=== PATIENT | female | born 1935 | race Caucasian/White ===

== ENCOUNTER 2016-10-30 18:19 | Emergency (ER) | payer MEDICARE, OTHER | END 2016-10-30 18:40 | disposition left against medical advice (07) | LOC: D.ER 18:19 | DX: Z02.9 Encounter for administrative examinations, unspecified (principal) ==

== ENCOUNTER 2016-11-17 11:14 | Inpatient (IN) | payer MEDICARE, OTHER ==
[~2016-11-17] VITALS: Ht 165.1 cm; Wt 77.0 kg
--- NOTE | 2016-11-17 11:00 | NUR ---
ARRIVE TO ROOM VIA AMBULATORY ACCOMPANIED BY DAUGHTER AND ADMISSION STAFF. ALERT AND ORIENTED X4. [place]. DIRECT ADMIT FROM 'S OFFICE. COMPLAINS OF NAUSEA AND VOMITING FOR PAST WEEK. DENIES PAIN OR SOB. DENIES ANY NEEDS. CONTINUE ADMISSION PROCESS. IV SITED LT AC 20G. BED LOCKED AND LOW. CALL LIGHT IN REACH. TWO SIDERAILS UP. REFUSE SCDs.
[2016-11-17] MEDS ORDERED: ZOLOFT25 MG PO (11:36)
[2016-11-17] MEDS ORDERED: PROAIR HFA8.5 GM INH (11:36)
[2016-11-17] MEDS ORDERED: PLAVIX75 MG PO (11:37)
[2016-11-17] MEDS ORDERED: ULTRAM50 MG PO (11:37)
[2016-11-17] MEDS ORDERED: CARAFATE1 G PO (11:38)
[2016-11-17] MEDS ORDERED: SILVADENE20 GM TP (11:38)
[2016-11-17] MEDS ORDERED: ZYLOPRIM100 MG PO (11:38)
[2016-11-17 12:51] LABS: BASOPHILS 0.7 % (0-2); EOSINOPHILS 20.1 % (0-7); HEMOGLOBIN 13.8 g/dL (12-16); IMMATURE GRANULOCYTES 0.2 % (0-5); LYMPHOCYTES 25.8 % (15-50); MCH 28.5 pg (26.0-34.0); MCHC 32.1 g/dL (31.0-37.0); MCV 88.8 fL (80.0-100.0); MEAN PLATELET VOLUME 10.3 fL (7.4-10.4); NEUTROPHILS 44.2 % (40-80); PLATELET COUNT 217 10x3/uL (130-400); RBC 4.84 10x6/uL (4.00-5.40); WBC 8.9 10x3/uL (4.8-10.8)
[2016-11-17 12:54] VITALS: BP 131/66
[2016-11-17 13:30] LABS: ALBUMIN 3.3 g/dL (3.4-5.0); ALKALINE PHOSPHATASE 94 U/L (46-116); ALT (SGPT) 21 U/L (10-68); AMYLASE - SERUM 29 U/L (25-115); BILIRUBIN - TOTAL 0.26 mg/dL (0.2-1.3); C-REACTIVE PROTEIN 1.8 mg/dL (0.0-0.9); CALC OSMOLALITY 280 mosm/kg (275-300); CALCIUM 8.6 mg/dL (8.5-10.1); CARBON DIOXIDE 35.2 mmol/L (21.0-32.0); CHLORIDE - SERUM 99 mmol/L (98-107); CKMB 0.2 U/L (0.0-3.6); CREATINE KINASE 53 UL (21-215); CREATININE - SERUM 0.9 mg/dL (0.6-1.3); GLUCOSE 119 mg/dL (74-106); LIPASE 73 U/L (73-393); SODIUM 141 mmol/L (136-145); THYROID STIMULATING HORMONE 3.05 uIU/mL (0.36-3.74); UREA NITROGEN 9 mg/dL (7-18); URIC ACID 6.6 mg/dL (2.6-7.2); eGFR NON AFRICAN AMERICAN 63 mL/min (90-120)
[2016-11-17 13:34] LABS: TROPONIN-I < 0.017 ng/mL (0.000-0.060)
[2016-11-17 15:04] VITALS: BP 131/66; BMI 27.5
[2016-11-17 16:21] VITALS: BP 137/55
--- NOTE | 2016-11-17 19:26 | NUR ---
PT RESTING IN ROOM. C/O NAUSEA. WILL GET ORDERED ZOFRAN ONCE SWITCH CREW SUPERVISOR COMES AND GETS IT FROM [facility]. IT IS UNVERIFIED BY PHARMACY. PT DENIES ANY OTHER NEEDS. NO S/S OF DISTRESS. WILL CPOC
[2016-11-17 20:16] VITALS: BP 146/52
[2016-11-18 04:55] VITALS: BP 126/40
[2016-11-18 06:09] LABS: BASOPHILS 1.1 % (0-2); EOSINOPHILS 24.8 % (0-7); HEMATOCRIT 39.5 % (36.0-48.0); HEMOGLOBIN 12.7 g/dL (12-16); IMMATURE GRANULOCYTES 0.1 % (0-5); LYMPHOCYTES 33.2 % (15-50); MCH 28.5 pg (26.0-34.0); MCHC 32.2 g/dL (31.0-37.0); MCV 88.6 fL (80.0-100.0); MEAN PLATELET VOLUME 9.7 fL (7.4-10.4); MONOCYTES 8.2 % (2-11); NEUTROPHILS 32.6 % (40-80); PLATELET COUNT 194 10x3/uL (130-400); RBC 4.46 10x6/uL (4.00-5.40); RDW 15.2 % (11.5-14.5); WBC 7.5 10x3/uL (4.8-10.8)
[2016-11-18 06:34] LABS: ALBUMIN 2.7 g/dL (3.4-5.0); BILIRUBIN - TOTAL 0.5 mg/dL (0.2-1.3); CALCIUM 8.4 mg/dL (8.5-10.1); CREATININE - SERUM 0.8 mg/dL (0.6-1.3); PROTEIN - SERUM 6.3 g/dL (6.4-8.2)
[2016-11-18 08:43] VITALS: BP 112/49
[2016-11-18 11:58] VITALS: BP 131/56
[2016-11-18 13:24] VITALS: BMI 27.4
[2016-11-18 13:37] VITALS: Ht 165.1 cm; Wt 77.0 kg
--- NOTE | 2016-11-18 15:42 | NUR ---
ALERT AND ORIENTED X4. RESTING IN BED. FAMILY AT BEDSIDE. DIET ADVANCED TO FULL LIQUID. DIET TOLERATED. SALTINE CRACKERS EATEN AND TOLERATED. ADVANCE DIET ORDERED. DENIES ANY NEEDS. CONTINUE PLAN OF CARE. BED LOCKED AND LOW. CALL LIGHT IN REACH. TWO SIDERAILS UP.
[2016-11-18 16:16] VITALS: BP 129/50
[2016-11-18 19:00] VITALS: BP 141/60
--- NOTE | 2016-11-18 23:00 | NUR ---
PT LYING IN BED. RESTING QUIETLY. ALERT & ORIENTED. NO O2. LEFT AC SALINE LOC. UP AD [place]. [place]. BED IN LOWEST POSITION AND CALL LIGHT WITHIN REACH.
[2016-11-19] VITALS: BP 148/67
[2016-11-19 04:00] VITALS: BP 145/63
--- NOTE | 2016-11-19 04:29 | NUR ---
CARPENTER LABOR SUPERVISOR AT BEDSIDE TO OBTAIN VITALS, CALL LIGHT IN REACH. WILL CONTINUE TO MONITOR.
--- NOTE | 2016-11-19 05:33 | NUR ---
PT LYING IN BED. EYES CLOSED. CHEST RISING AND FALLING. BED IN LOWEST POSITION AND CALL LIGHT WITHIN REACH.
--- NOTE | 2016-11-19 07:51 | NUR ---
RESTING QUIETLY ALERT AND ORIENTED DENIE ANY NEEDS OR DISCOMFORT AT THIS TIME NAD NOTED
[2016-11-19 08:23] VITALS: BP 147/62
--- NOTE | 2016-11-19 10:48 | NUR ---
Patient Name: GAMA CRENSHAW Admission Status: Urgent Accout number: [id number] Admission Date: 11-17-2016 : 1935 Admission Diagnosis: Attending: KAL, Current LOS: 2 Anticipated DC Date: Planned Disposition: Home Primary Insurance: MEDICARE A & B LATE ENTRY FROM 11-18-16: Discharge Planning Comments: * Is the patient Alert and Oriented? Yes 0 * How many steps to enter\exit or inside your home? NONE 0 * PCP DR. BOWDEN 0 * Pharmacy [facility] - [facility] * Preadmission Environment Home with Family 0 * ADLs Independent 0 * Equipment None 0 * Other Equipment NO MEDICAL EQUIPMENT PROVIDER PREFERENCE 0 * List name and contact numbers for known caregivers / representatives who currently or will assist patient after discharge: DANA CRENSHAW, DAUGHTER, 0 * Community resources currently utilized None 0 * Please name any agencies selected above. NONE 0 * Additional services required to return to the preadmission environment? No 0 * Can the patient safely return to the preadmission environment? Yes 0 * Has this patient been hospitalized within the prior 30 days at any hospital? No 0 CM MET WITH PT IN ROOM TO DISCUSS DISCHARGE PLANNING AND NEEDS. PT REPORTS LIVING AT HOME INDEPENDENTLY WITH ADULT DAUGHTER. PT HAS NO MEDICAL EQUIPMENT AND NO OUTSIDE SERVICES ASSISTING IN THE HOME. CM DISCUSSED AVAILABILITY OF HOME HEALTH, REHAB SERVICES AND MEDICAL EQUIPMENT. PT DENIES DISCHARGE NEEDS, REPORTS HER DAUGHTER WILL PICK HER UP FOR DISCHARGE HOME. [employer]: Rangel Arnold
[2016-11-19 11:36] VITALS: BP 151/58
[2016-11-19] MEDS ORDERED: LASIX40 MG PO (12:01)
[2016-11-19] MEDS ORDERED: K-TAB10 MEQ PO (12:02)
[2016-11-19] MEDS ORDERED: PROTONIX40 MG PO (12:03)
[2016-11-19] MEDS ORDERED: CALAN SR120 MG PO (12:04)
[2016-11-19] MEDS ORDERED: SYNTHROID88 MCG PO (12:05)
[2016-11-19] MEDS ORDERED: CALAN SR240 MG PO (12:05)
--- NOTE | 2016-11-19 13:14 | NUR ---
Patient Name: GAMA CRENSHAW Encounter No: [id number] : 1935 Primary Insurance: MEDICARE A & B Anticipated DC Date: 11-19-2016 Planned Disposition: Home DCP follow-up note: CM MET WITH PT IN ROOM TO DISCUSS DISCHARGE NEEDS AND PLANNING. CM DISCUSSED AVAILABILITY OF HOME HEALTH, REHAB SERVICES AND MEDICAL EQUIPMENT. PT DENIES DISCHARGE NEEDS. DAUGHTER TO TRANSPORT HOME AT DISCHARGE TODAY. IMPORTANT MESSAGE FROM MEDICARE PROVIDED AND EXPLAINED. Rangel Arnold, CASE MANAGEMENT
--- NOTE | 2016-11-19 14:06 | NUR ---
PT DISCHARGED. INSTRUCTIONS GIVEN TO PT. IV DCD WITH TIP INTACT.TO PRIVATE CAR PER WHEELCHAIR.
== END 2016-11-19 14:08 | disposition home or self-care (01) | DRG 192 ==
LOC: D.M2 11:14
PROVIDERS: ADMIT Family Medicine
DX: J44.9 Chronic obstructive pulmonary disease, unspecified (principal); W19.XXXA Unspecified fall, initial encounter; M54.2 Cervicalgia; R11.0 Nausea; J84.10 Pulmonary fibrosis, unspecified; R59.9 Enlarged lymph nodes, unspecified; K76.0 Fatty (change of) liver, not elsewhere classified

== ENCOUNTER → 2017-06-23 10:43 | Outpatient (CLI) | payer MEDICARE, OTHER ==
[2016-11-18 13:37] VITALS: BMI 28.2
[~2017-06-23 10:43] MED LIST: CALAN SR120 MG PO; CALAN SR240 MG PO; CARAFATE1 G PO; K-TAB10 MEQ PO; LASIX40 MG PO; PLAVIX75 MG PO; PROAIR HFA8.5 GM INH; PROTONIX40 MG PO; SILVADENE20 GM TP; SYNTHROID88 MCG PO; ULTRAM50 MG PO; ZOLOFT25 MG PO; ZYLOPRIM100 MG PO
== END | disposition home or self-care (01) ==
LOC: D.MRI 06-07 09:00
DX: R41.841 Cognitive communication deficit (principal)